=== PATIENT | female | born 1965 | race Caucasian/White ===

== ENCOUNTER 2017-08-07 18:17 | Emergency (ER) | payer BC, OTHER ==
[~2017-08-07] VITALS: Ht 167.6 cm; Wt 72.7 kg
[2017-08-07] MEDS ORDERED: OXYB15TA (18:35)
[2017-08-07] MEDS ORDERED: TECF240C (18:35)
[2017-08-07] MEDS ORDERED: ACETAMINOPHEN TAB 650MG DOSE (2X325MG) PO ONE (20:45)
[2017-08-07 23:10] VITALS: BP 126/74
--- NOTE | 2017-08-08 07:52 | REP ---
Right humerus two views : There is no fracture or dislocation. Mineralization and joint spaces are normal. There are no calcifications or foreign bodies. Impression: Negative right humerus. The . Signed by Abdiel Dixon MD 08/08/2017 07:43 A
--- NOTE | 2017-08-08 07:53 | REP ---
Right elbow five views : There is no fracture or dislocation. Mineralization and joint spaces are normal. There are no calcifications or foreign bodies. Impression: Negative right elbow . Signed by Abdiel Dixon MD 08/08/2017 07:44 A
--- NOTE | 2017-08-08 07:54 | REP ---
Right forearm two views : There is no fracture or dislocation. Mineralization and joint spaces are normal. There are no calcifications or foreign bodies. Impression: Negative right forearm . Signed by Abdiel Dixon MD 08/08/2017 07:45 A
--- NOTE | 2017-08-08 07:54 | REP ---
Right hand four views : There is no fracture or dislocation. Mineralization and joint spaces are normal. There are no calcifications or foreign bodies. Impression: Negative right hand . Signed by Abdiel Dixon MD 08/08/2017 07:45 A
== END 2017-08-07 23:13 | disposition home or self-care (01) ==
LOC: M ED 18:17
DX: S50.11XA Contusion of right forearm, initial encounter (principal); W01.198A Fall on same level from slipping, tripping and stumbling with subsequent striking against other object, initial encounter; Y92.015 Private garage of single-family (private) house as the place of occurrence of the external cause; Y93.01 Activity, walking, marching and hiking; Y99.8 Other external cause status; G35 Multiple sclerosis; Z79.899 Other long term (current) drug therapy

== ENCOUNTER → 2019-06-26 | Outpatient (REF) | payer OTHER ==
[~2019-06-26] MED LIST: OXYB15TA; TECF240C
[2019-06-29 16:05] LABS: HPV HYBRID CAPTURE II Negative (Negative)
== END ==
LOC: M LAB LCGH 12:36
PROVIDERS: ATTEND Obstetrics & Gynecology
DX: Z12.4 Encounter for screening for malignant neoplasm of cervix (principal)
CPT/HCPCS: 87624; G0123